=== PATIENT | female | born 1955 | race Caucasian/White ===

== ENCOUNTER → 2017-03-09 | Outpatient (CLI) | payer OTHER ==
[~2017-03-09] MED LIST: ANUSOL-HC25 MG R; CIPRO250 MG PO; CIPRO500 MG PO; CYCLOBENZAPRINE10 MG PO; DAYPRO600 M1 PO; DOXYCYCLINE MO100 MG PO; FLAGYL500 MG PO; IBUPROFEN600 MG PO; MEDROL DOSEPAK4 MG PO; NKHM; PRILOSEC20 MG PO; ROBAXIN750 MG PO; ROBITUSSIN-AC480 ML PO
[2017-03-09 09:57] LABS: BASO % 0.2 % (0.0-1.0); EOS # 0.1 10*3/uL (0.0-0.4); EOS % 1.2 % (1.0-4.0); HEMATOCRIT 45.3 % (37.0-47.0); HEMOGLOBIN 14.7 g/dl (12.0-16.0); IG # 0.1 10*3/uL (0.0-0.1); LYMPH # 2.1 10*3/uL (1.3-4.4); LYMPH % 24.5 % (27.0-41.0); MEAN CELL VOLUME 89.7 fl (81.0-99.0); MEAN CORPUSCULAR HGB 29.1 pg (27.0-31.0); MEAN CORPUSCULAR HGB CONC 32.5 g/dl (33.0-37.0); MEAN PLATELET VOLUME 9.9 fl (9.6-12.3); MONO # 0.7 10*3/uL (0.1-1.0); MONO % 8.4 % (3.0-9.0); NEUT # 5.5 10*3/uL (2.3-7.9); NEUT % 65.1 % (47.0-73.0); PLATELET COUNT AUTOMATED 259 10*3/uL (130-400); RED BLOOD COUNT 5.05 10*6/uL (4.10-5.10); RED CELL DISTRI WIDTH 13.7 % (0-14.5); WHITE BLOOD COUNT 8.5 10*3/uL (4.8-10.8)
[2017-03-09 10:11] LABS: ALBUMIN 3.9 gm/dl (3.1-4.5); ALKALINE PHOSPHATASE 115 U/L (45-117); BILIRUBIN, TOTAL 0.5 mg/dl (0.2-1.0); BUN 21 mg/dl (7-24); CARBON DIOXIDE 29 mmol/L (21-32); CHLORIDE 105 mmol/L (98-107); CHOLESTEROL 253 mg/dL (<200); EST GLOM FILT AFRICAN AMERICAN > 60 ml/min; FREE T4 1.16 ng/dl (0.76-1.46); GLUCOSE 100 mg/dL (65-99); HDL CHOLESTEROL 63 mg/dl (40-60); LDL CHOLESTEROL 171 mg/dL (9-159); POTASSIUM 4.3 mmol/L (3.5-5.1); SGOT/AST 21 IU/L (3-35); SGPT/ALT 30 U/L (12-78); SODIUM 142 mmol/L (136-145); TOTAL PROTEIN 7.8 gm/dL (6.4-8.2); TRIGLYCERIDES 97 mg/dl (<150); VLDL CHOLESTEROL 19 mg/dL (6-40)
[2017-03-09 10:51] LABS: FOLIC ACID 17.96 ng/mL (>5.38); VITAMIN D, 25-HYDROXY 27.6 ng/mL (30-100)
== END | disposition home or self-care (01) ==
LOC: LAB 09:21 → CT 11:00
PROVIDERS: Internal Medicine
DX: Z13.220 Encounter for screening for lipoid disorders (principal); Z13.1 Encounter for screening for diabetes mellitus; Z13.21 Encounter for screening for nutritional disorder; E55.9 Vitamin D deficiency, unspecified; R53.81 Other malaise; R10.9 Unspecified abdominal pain; K76.0 Fatty (change of) liver, not elsewhere classified; N28.89 Other specified disorders of kidney and ureter; K57.30 Diverticulosis of large intestine without perforation or abscess without bleeding; Q89.09 Congenital malformations of spleen

== ENCOUNTER → 2017-03-15 | Outpatient (CLI) | payer OTHER | END | disposition home or self-care (01) | LOC: US 12:58 | DX: N88.8 Other specified noninflammatory disorders of cervix uteri (principal) ==

== ENCOUNTER → 2017-03-21 | Outpatient (CLI) | payer OTHER | END | disposition home or self-care (01) | LOC: NM 07:00 | DX: R10.11 Right upper quadrant pain (principal); R12 Heartburn; R14.0 Abdominal distension (gaseous); R11.0 Nausea; J44.9 Chronic obstructive pulmonary disease, unspecified ==

== ENCOUNTER 2018-08-01 16:55 | Emergency (ER) | payer OTHER ==
[~2018-08-01] VITALS: Ht 167.6 cm; Wt 74.8 kg
[2018-08-01] MEDS ORDERED: SILVADENE,SSD C50 GM T (18:02)
[2018-08-01] MEDS ORDERED: NORCO 5-325 TA1 EACH PO (18:08)
== END 2018-08-01 19:02 | disposition home or self-care (01) ==
LOC: ED 16:55
DX: T20.26XA Burn of second degree of forehead and cheek, initial encounter (principal); R03.0 Elevated blood-pressure reading, without diagnosis of hypertension; F17.200 Nicotine dependence, unspecified, uncomplicated; Z88.0 Allergy status to penicillin; X08.8XXA Exposure to other specified smoke, fire and flames, initial encounter; Y93.G3 Activity, cooking and baking; Y92.090 Kitchen in other non-institutional residence as the place of occurrence of the external cause; Y99.8 Other external cause status

== ENCOUNTER → 2019-05-14 | Outpatient (CLI) | payer OTHER ==
[~2019-05-14] MED LIST changes: +LISINOPRIL5 MG PO; +LOMOTIL 2.5-0.1 EACH PO; +NORCO 5-325 TA1 EACH PO; +PANTOPRAZOLE SO40 MG PO; +SILVADENE,SSD C50 GM T; +SYMB160 INH
== END | disposition home or self-care (01) ==
LOC: CARD 08:22
DX: R06.02 Shortness of breath (principal)

== ENCOUNTER → 2020-04-02 | Outpatient (CLI) | payer OTHER ==
[2020-04-02 11:27] LABS: BASO % 0.3 % (0.0-1.0); EOS # 0.1 10*3/uL (0.0-0.4); EOS % 0.5 % (1.0-4.0); HEMATOCRIT 42.1 % (37.0-47.0); LYMPH # 2.1 10*3/uL (1.3-4.4); LYMPH % 19.5 % (27.0-41.0); MEAN CORPUSCULAR HGB 28.4 pg (27.0-31.0); MEAN CORPUSCULAR HGB CONC 31.6 g/dl (33.0-37.0); MEAN PLATELET VOLUME 9.2 fl (9.6-12.3); MONO # 0.8 10*3/uL (0.1-1.0); MONO % 7.3 % (3.0-9.0); NEUT # 7.7 10*3/uL (2.3-7.9); NEUT % 71.7 % (47.0-73.0); PLATELET COUNT AUTOMATED 246 10*3/uL (130-400); RED BLOOD COUNT 4.68 10*6/uL (4.10-5.10); RED CELL DISTRI WIDTH 13.7 % (0-14.5); WHITE BLOOD COUNT 10.7 10*3/uL (4.8-10.8)
[2020-04-02 11:43] LABS: ALBUMIN 3.8 gm/dl (3.1-4.5); CREATININE 1.19 mg/dL (0.55-1.02); FREE T4 1.22 ng/dl (0.76-1.46); POTASSIUM 4.3 mmol/L (3.5-5.1); TOTAL PROTEIN 8.1 gm/dL (6.4-8.2)
[2020-04-02 11:48] LABS: THYROID STIM HORMONE (HS) 2.25 uIU/ml (0.358-4.75)
[2020-04-02 12:52] LABS: VITAMIN D, 25-HYDROXY 26.4 ng/mL (30-100)
== END | disposition home or self-care (01) ==
LOC: LAB 10:51 → CT 11:00
PROVIDERS: Internal Medicine
DX: Z00.00 Encounter for general adult medical examination without abnormal findings (principal); E55.9 Vitamin D deficiency, unspecified; I10 Essential (primary) hypertension; C64.9 Malignant neoplasm of unspecified kidney, except renal pelvis; E78.2 Mixed hyperlipidemia; M25.559 Pain in unspecified hip

== ENCOUNTER 2020-04-07 12:29 | Inpatient (IN) | payer OTHER ==
[~2020-04-07] VITALS: Ht 167.6 cm; Wt 80.7 kg
[2020-04-07 12:47] VITALS: BP 180/84
[2020-04-07 13:11] LABS: ALBUMIN 3.7 gm/dl (3.1-4.5); ALKALINE PHOSPHATASE 103 U/L (45-117); BUN 14 mg/dl (7-24); CHLORIDE 108 mmol/L (98-107); POTASSIUM 4.1 mmol/L (3.5-5.1); SGOT/AST 17 IU/L (3-35); SGPT/ALT 32 U/L (12-78); SODIUM 141 mmol/L (136-145); TOTAL PROTEIN 7.8 gm/dL (6.4-8.2)
[2020-04-07 13:12] LABS: TROPONIN I < 0.015 ng/ml (<0.045)
[2020-04-07 13:24] LABS: BASO % 0.3 % (0.0-1.0); EOS # 0.1 10*3/uL (0.0-0.4); HEMATOCRIT 38.7 % (37.0-47.0); LYMPH # 1.7 10*3/uL (1.3-4.4); LYMPH % 22.7 % (27.0-41.0); MEAN CELL VOLUME 90.4 fl (81.0-99.0); MEAN CORPUSCULAR HGB 28.5 pg (27.0-31.0); MEAN CORPUSCULAR HGB CONC 31.5 g/dl (33.0-37.0); MEAN PLATELET VOLUME 9.5 fl (9.6-12.3); MONO # 0.5 10*3/uL (0.1-1.0); MONO % 6.9 % (3.0-9.0); NEUT # 5.1 10*3/uL (2.3-7.9); NEUT % 68.7 % (47.0-73.0); PLATELET COUNT AUTOMATED 218 10*3/uL (130-400); RED BLOOD COUNT 4.28 10*6/uL (4.10-5.10); RED CELL DISTRI WIDTH 13.8 % (0-14.5); WHITE BLOOD COUNT 7.4 10*3/uL (4.8-10.8)
[2020-04-07 13:34] LABS: ACT PARTIAL THROMBO TIME 26.4 SECONDS (20.0-32.1)
[2020-04-07 14:06] VITALS: BP 164/70
[2020-04-07 15:00] VITALS: BP 180/78
[2020-04-07] MEDS ORDERED: LISINOPRIL10 M1 PO (15:10)
[2020-04-07 20:00] VITALS: BP 144/64
[2020-04-08] VITALS: BP 156/67
[2020-04-08 03:43] LABS: BASO % 0.2 % (0.0-1.0); EOS % 0.1 % (1.0-4.0); HEMATOCRIT 41.9 % (37.0-47.0); LYMPH # 0.8 10*3/uL (1.3-4.4); LYMPH % 8.2 % (27.0-41.0); MEAN CELL VOLUME 90.9 fl (81.0-99.0); MEAN CORPUSCULAR HGB 28.4 pg (27.0-31.0); MEAN CORPUSCULAR HGB CONC 31.3 g/dl (33.0-37.0); MONO # 0.1 10*3/uL (0.1-1.0); MONO % 1.2 % (3.0-9.0); NEUT # 9.2 10*3/uL (2.3-7.9); NEUT % 89.9 % (47.0-73.0); PLATELET COUNT AUTOMATED 247 10*3/uL (130-400); RED BLOOD COUNT 4.61 10*6/uL (4.10-5.10); RED CELL DISTRI WIDTH 13.7 % (0-14.5); WHITE BLOOD COUNT 10.2 10*3/uL (4.8-10.8)
[2020-04-08 03:56] LABS: BUN 16 mg/dl (7-24); CHLORIDE 109 mmol/L (98-107); CREATININE 1.06 mg/dL (0.55-1.02); POTASSIUM 4.2 mmol/L (3.5-5.1); SODIUM 141 mmol/L (136-145)
[2020-04-08 03:59] LABS: CHOLESTEROL 242 mg/dL (<200); HDL CHOLESTEROL 54 mg/dl (40-60); LDL CHOLESTEROL 174 mg/dL (9-159); TRIGLYCERIDES 70 mg/dl (<150); VLDL CHOLESTEROL 14 mg/dL (6-40)
[2020-04-08 08:00] VITALS: BP 168/88
[2020-04-08 12:00] VITALS: BP 179/69
[2020-04-08 16:00] VITALS: BP 148/50
[2020-04-08 20:00] VITALS: BP 158/70
[2020-04-09] VITALS: BP 163/68
[2020-04-09] MEDS ORDERED: METOPROLOL SUC100 M1 PO (06:30)
[2020-04-09] MEDS ORDERED: ATORVASTATIN CA20 M1 PO (06:30)
[2020-04-09] MEDS ORDERED: PREDNISONE5 MG PO (06:30)
[2020-04-09] MEDS ORDERED: DOXYCYCLINE100 M3 PO (06:30)
[2020-04-09 08:00] VITALS: BP 158/64
== END 2020-04-09 10:49 | disposition home or self-care (01) | DRG 140 ==
LOC: ED 12:29 → EDHOLD 14:04 → 5E 14:48
PROVIDERS: Emergency Medicine; ADMIT Internal Medicine
PROC: 4A02XM4 Measurement of Cardiac Total Activity, External Approach (ICD-10-PCS; principal; 2020-04-09)
PROC: 3E073KZ Introduction of Other Diagnostic Substance into Coronary Artery, Percutaneous Approach (ICD-10-PCS; 2020-04-09)
DX: J44.0 Chronic obstructive pulmonary disease with (acute) lower respiratory infection (principal); J44.1 Chronic obstructive pulmonary disease with (acute) exacerbation; R07.89 Other chest pain; J20.9 Acute bronchitis, unspecified; N18.3 Chronic kidney disease, stage 3 (moderate); J96.10 Chronic respiratory failure, unspecified whether with hypoxia or hypercapnia; I12.9 Hypertensive chronic kidney disease with stage 1 through stage 4 chronic kidney disease, or unspecified chronic kidney disease; F17.210 Nicotine dependence, cigarettes, uncomplicated; E78.2 Mixed hyperlipidemia; Z90.5 Acquired absence of kidney; Z71.6 Tobacco abuse counseling; Z88.0 Allergy status to penicillin

== ENCOUNTER → 2021-02-09 | Outpatient (CLI) | payer OTHER ==
[~2021-02-09] MED LIST changes: +ATORVASTATIN CA20 M1 PO; +DOXYCYCLINE100 M3 PO; +LISINOPRIL10 M1 PO; +METOPROLOL SUC100 M1 PO; +PREDNISONE5 MG PO
== END | disposition home or self-care (01) ==
LOC: RAD 14:15
PROVIDERS: ATTEND Internal Medicine
DX: M46.02 Spinal enthesopathy, cervical region (principal); R10.9 Unspecified abdominal pain

== ENCOUNTER → 2021-07-28 | Outpatient (CLI) | payer OTHER ==
[2021-07-28 11:22] LABS: BASO % 0.2 % (0.0-1.0); EOS # 0.1 10*3/uL (0.0-0.4); EOS % 0.4 % (1.0-4.0); HEMATOCRIT 42.5 % (37.0-47.0); LYMPH # 1.9 10*3/uL (1.3-4.4); LYMPH % 15.8 % (27.0-41.0); MEAN CELL VOLUME 90.2 fl (81.0-99.0); MEAN CORPUSCULAR HGB 28.5 pg (27.0-31.0); MEAN CORPUSCULAR HGB CONC 31.5 g/dl (33.0-37.0); MEAN PLATELET VOLUME 9.5 fl (9.6-12.3); MONO % 8.1 % (3.0-9.0); NEUT # 8.9 10*3/uL (2.3-7.9); PLATELET COUNT AUTOMATED 275 10*3/uL (130-400); RED BLOOD COUNT 4.71 10*6/uL (4.10-5.10); RED CELL DISTRI WIDTH 13.6 % (0-14.5); WHITE BLOOD COUNT 11.9 10*3/uL (4.8-10.8)
[2021-07-28 11:44] LABS: ALBUMIN 3.4 gm/dl (3.1-4.5); ALKALINE PHOSPHATASE 100 U/L (45-117); BUN 21 mg/dl (7-24); CHLORIDE 107 mmol/L (98-107); CHOLESTEROL 248 mg/dL (<200); CREATININE 0.99 mg/dL (0.55-1.02); LDL CHOLESTEROL 167 mg/dL (9-159); POTASSIUM 4.4 mmol/L (3.5-5.1); SGOT/AST 15 IU/L (3-35); SGPT/ALT 30 U/L (12-78); SODIUM 140 mmol/L (136-145); TOTAL PROTEIN 7.7 gm/dL (6.4-8.2); TRIGLYCERIDES 135 mg/dl (<150)
[2021-07-28 11:56] LABS: VITAMIN D, 25-HYDROXY 38.8 ng/mL (30-100)
== END | disposition home or self-care (01) ==
LOC: LAB 11:01
PROVIDERS: ATTEND Internal Medicine
DX: Z13.1 Encounter for screening for diabetes mellitus (principal); E78.2 Mixed hyperlipidemia; E55.9 Vitamin D deficiency, unspecified; Z00.00 Encounter for general adult medical examination without abnormal findings; I10 Essential (primary) hypertension

== ENCOUNTER → 2022-03-01 | Outpatient (CLI) | payer OTHER | END | disposition home or self-care (01) | LOC: LAB 08:15 → CT 09:00 | PROVIDERS: Radiology Diagnostic Radiology; ATTEND Internal Medicine | DX: J43.9 Emphysema, unspecified (principal); R91.8 Other nonspecific abnormal finding of lung field; I25.10 Atherosclerotic heart disease of native coronary artery without angina pectoris; N28.1 Cyst of kidney, acquired ==

== ENCOUNTER → 2023-01-16 | Outpatient (CLI) | payer OTHER ==
[~2023-01-16] MED LIST changes: +BREO ELLIPTA 21 EACH INH; +HYDRALAZINE HYD50 MG PO
== END | disposition home or self-care (01) ==
LOC: MRI 01:10
PROVIDERS: ATTEND Internal Medicine
DX: M47.817 Spondylosis without myelopathy or radiculopathy, lumbosacral region (principal); M48.07 Spinal stenosis, lumbosacral region; M51.36 Other intervertebral disc degeneration, lumbar region

== ENCOUNTER → 2023-01-16 | Outpatient (CLI) | payer OTHER ==
[2023-01-16 11:48] LABS: BASO % 0.1 % (0.0-1.0); EOS # 0.1 10*3/uL (0.0-0.4); EOS % 0.5 % (1.0-4.0); LYMPH # 1.7 10*3/uL (1.3-4.4); LYMPH % 18.2 % (27.0-41.0); MEAN CELL VOLUME 91.3 fl (81.0-99.0); MEAN CORPUSCULAR HGB 28.2 pg (27.0-31.0); MEAN CORPUSCULAR HGB CONC 30.9 g/dl (33.0-37.0); MONO # 0.6 10*3/uL (0.1-1.0); MONO % 6.3 % (3.0-9.0); NEUT % 74.6 % (47.0-73.0); PLATELET COUNT AUTOMATED 220 10*3/uL (130-400); RED BLOOD COUNT 4.82 10*6/uL (4.10-5.10); RED CELL DISTRI WIDTH 14.2 % (0-14.5); WHITE BLOOD COUNT 9.5 10*3/uL (4.8-10.8)
[2023-01-16 12:17] LABS: ALKALINE PHOSPHATASE 98 U/L (46-116); BUN 12 mg/dl (9-23); CHLORIDE 109 mmol/L (98-107); CHOLESTEROL 189 mg/dL (<200); FREE T4 1.12 ng/dl (0.89-1.76); LDL CHOLESTEROL 100 mg/dL (9-159); POTASSIUM 4.1 mmol/L (3.4-5.1); SGPT/ALT 14 U/L (10-49); THYROID STIM HORMONE (HS) 1.981 uIU/ml (0.550-4.780); TOTAL PROTEIN 7.1 gm/dL (6.0-8.0); TRIGLYCERIDES 192 mg/dl (<150); VITAMIN D, 25-HYDROXY 49.7 ng/mL (30-100)
== END | disposition home or self-care (01) ==
LOC: LAB 11:29
PROVIDERS: ATTEND Internal Medicine
DX: I10 Essential (primary) hypertension (principal); M47.816 Spondylosis without myelopathy or radiculopathy, lumbar region; E55.9 Vitamin D deficiency, unspecified

== ENCOUNTER → 2023-01-19 | Outpatient (CLI) | payer OTHER | END | disposition home or self-care (01) | LOC: RAD 00:50 | PROVIDERS: ATTEND Internal Medicine | DX: Z13.820 Encounter for screening for osteoporosis (principal); Z78.0 Asymptomatic menopausal state ==

== ENCOUNTER → 2023-05-15 | Outpatient (CLI) | payer OTHER | END | disposition home or self-care (01) | LOC: LAB 02:52 → CT 11:00 | PROVIDERS: ATTEND Internal Medicine | DX: I74.5 Embolism and thrombosis of iliac artery (principal); R93.6 Abnormal findings on diagnostic imaging of limbs ==

== ENCOUNTER 2023-10-09 18:31 | Emergency (ER) | payer OTHER ==
[2023-10-09 19:23] LABS: EOS % 0.4 % (1.0-4.0); LYMPH # 1.4 10*3/uL (1.3-4.4); MEAN CELL VOLUME 91.7 fl (81.0-99.0); MEAN CORPUSCULAR HGB 28.1 pg (27.0-31.0); MEAN CORPUSCULAR HGB CONC 30.7 g/dl (33.0-37.0); MEAN PLATELET VOLUME 9.8 fl (9.6-12.3); MONO # 0.7 10*3/uL (0.1-1.0); MONO % 6.3 % (3.0-9.0); NEUT # 8.6 10*3/uL (2.3-7.9); PLATELET COUNT AUTOMATED 239 10*3/uL (130-400); RED CELL DISTRI WIDTH 13.6 % (0-14.5); WHITE BLOOD COUNT 10.8 10*3/uL (4.8-10.8)
[2023-10-09 19:35] LABS: ACT PARTIAL THROMBO TIME 27.9 SECONDS (20.0-32.1)
[2023-10-09 19:47] LABS: BILIRUBIN Negative (Negative); BLOOD Negative (Negative); CLARITY Clear (Clear); COLOR Yellow (Yellow); GLUCOSE Negative (Negative); KETONE Trace (Negative); LEUKO ESTERASE Negative (Negative); NITRITE Negative (Negative); SPECIFIC GRAVITY 1.015 (1.001-1.030); UROBILINOGEN 0.2 E.U./dl (0.0-1.0)
[2023-10-09 20:03] LABS: BACTERIA TRACE; HYALINE CAST 0-2; RBC 0-2 rbc/hpf (0-2)
[2023-10-09 20:11] LABS: POTASSIUM 4.1 mmol/L (3.4-5.1)
== END 2023-10-09 23:14 | disposition home or self-care (01) ==
LOC: ED 18:31
PROVIDERS: Physician Assistant Medical
DX: J40 Bronchitis, not specified as acute or chronic (principal); R07.81 Pleurodynia; I10 Essential (primary) hypertension; J44.9 Chronic obstructive pulmonary disease, unspecified; E11.9 Type 2 diabetes mellitus without complications; Z88.0 Allergy status to penicillin; Z98.890 Other specified postprocedural states; Z98.51 Tubal ligation status; K21.9 Gastro-esophageal reflux disease without esophagitis

== ENCOUNTER 2023-10-18 12:54 | Inpatient (IN) | payer OTHER, MEDICAID ==
[~2023-10-18] VITALS: Ht 167.6 cm; Wt 72.6 kg
[2023-10-18] VITALS (8 sets, daily range): BP systolic 140–211; BP diastolic 65–96
[2023-10-18 13:33] LABS: BASO % 0.1 % (0.0-1.0); EOS % 0.1 % (1.0-4.0); HEMATOCRIT 41.8 % (37.0-47.0); LYMPH # 1.5 10*3/uL (1.3-4.4); LYMPH % 17.7 % (27.0-41.0); MEAN CELL VOLUME 90.1 fl (81.0-99.0); MEAN CORPUSCULAR HGB 28.4 pg (27.0-31.0); MEAN CORPUSCULAR HGB CONC 31.6 g/dl (33.0-37.0); MEAN PLATELET VOLUME 10.1 fl (9.6-12.3); MONO # 0.7 10*3/uL (0.1-1.0); MONO % 7.5 % (3.0-9.0); NEUT # 6.4 10*3/uL (2.3-7.9); NEUT % 73.9 % (47.0-73.0); PLATELET COUNT AUTOMATED 288 10*3/uL (130-400); RED BLOOD COUNT 4.64 10*6/uL (4.10-5.10); RED CELL DISTRI WIDTH 13.7 % (0-14.5); WHITE BLOOD COUNT 8.6 10*3/uL (4.8-10.8)
[2023-10-18 13:44] LABS: ACT PARTIAL THROMBO TIME 28.5 SECONDS (20.0-32.1)
[2023-10-18 13:49] LABS: ALKALINE PHOSPHATASE 98 U/L (46-116); BUN 16 mg/dl (9-23); CHLORIDE 104 mmol/L (98-107); LIPASE 34 U/L (12-53); POTASSIUM 4.3 mmol/L (3.4-5.1); SGPT/ALT 22 U/L (5-49); TOTAL PROTEIN 7.5 gm/dL (6.0-8.0)
[2023-10-18] MEDS ORDERED: methylPREDNISolone sod succ 125 MG VIAL IV ONE (15:45)
[2023-10-18] MEDS ORDERED: HEPARIN SODIUM 25,000 UNITS/250 ML BAG IV SCH (15:45)
[2023-10-18] MEDS ORDERED: ASPIRIN, CHEWABLE 81 MG TAB PO ONE (15:45)
[2023-10-18] MEDS ORDERED: AZITHROMYCIN 250 ML IV ONE (15:45)
[2023-10-18] MEDS ORDERED: Ceftriaxone Sodium 1 GM/10 ML SYR IV ONE (15:45)
[2023-10-18] MEDS ORDERED: Albuterol Sulf/Ipratropium 3 ML VIAL NEB ONE (15:45)
[2023-10-18] MEDS ORDERED: Albuterol Sulf/Ipratropium 3 ML VIAL NEB PRN (22:05)
[2023-10-18] MEDS ORDERED: SINGULAIR10 M1 PO (22:05)
[2023-10-19] VITALS (8 sets, daily range): BP systolic 133–190; BP diastolic 61–86
[2023-10-19] MEDS ORDERED: NITROGLYCERIN 1 IN PACKET T SCH
[2023-10-19] MEDS ORDERED: cloNIDine Hydrochloride 0.1 MG TAB PO ONE (01:55)
[2023-10-19 04:54] LABS: BUN 17 mg/dl (9-23); CHLORIDE 107 mmol/L (98-107); CHOLESTEROL 182 mg/dL (<200); LDL CHOLESTEROL 123 mg/dL (9-159); POTASSIUM 5.2 mmol/L (3.4-5.1); TRIGLYCERIDES 101 mg/dl (<150)
[2023-10-19 05:56] LABS: BILIRUBIN Negative (Negative); BLOOD Negative (Negative); CLARITY Clear (Clear); COLOR Yellow (Yellow); GLUCOSE Negative (Negative); KETONE Negative (Negative); LEUKO ESTERASE Negative (Negative); NITRITE Negative (Negative); PH 5.5 (4.5-8.0); SPECIFIC GRAVITY 1.025 (1.001-1.030); UROBILINOGEN 0.2 E.U./dl (0.0-1.0)
[2023-10-19] MEDS ORDERED: hydrALAZINE hydrochloride 50 MG TAB PO SCH (06:00)
[2023-10-19 06:29] LABS: BACTERIA 1+; WBC 0-2 wbc/hpf (0-5); YEAST 1+
[2023-10-19 06:42] LABS: BASO % 0.2 % (0.0-1.0); LYMPH # 0.6 10*3/uL (1.3-4.4); LYMPH % 9.4 % (27.0-41.0); MEAN CORPUSCULAR HGB 27.4 pg (27.0-31.0); MEAN CORPUSCULAR HGB CONC 29.3 g/dl (33.0-37.0); MONO # 0.3 10*3/uL (0.1-1.0); MONO % 3.9 % (3.0-9.0); NEUT # 5.4 10*3/uL (2.3-7.9); NEUT % 84.3 % (47.0-73.0); PLATELET COUNT AUTOMATED 296 10*3/uL (130-400); RED BLOOD COUNT 4.38 10*6/uL (4.10-5.10); RED CELL DISTRI WIDTH 13.4 % (0-14.5); WHITE BLOOD COUNT 6.4 10*3/uL (4.8-10.8)
[2023-10-19 06:46] LABS: MEAN CELL VOLUME 93.6 fl (81.0-99.0)
[2023-10-19] MEDS ORDERED: Pantoprazole Sodium 40 MG TAB PO SCH (07:30)
[2023-10-19] MEDS ORDERED: BUDESONIDE 0.5 MG AMP NEB SCH (07:45)
[2023-10-19] MEDS ORDERED: ASPIRIN ENTERIC COATED 81 MG TAB PO SCH (10:00)
[2023-10-19] MEDS ORDERED: METOPROLOL SUCCINATE XR 100 MG TAB PO SCH (10:00)
[2023-10-19] MEDS ORDERED: Montelukast Sodium 10 MG TAB PO SCH (10:00)
[2023-10-19] MEDS ORDERED: LISINOPRIL 10 MG TAB PO SCH (10:00)
[2023-10-19] MEDS ORDERED: methylPREDNISolone sod succ 40 MG VIAL IV SCH (14:00)
[2023-10-19] MEDS ORDERED: Albuterol Sulf/Ipratropium 3 ML VIAL NEB SCH ×2 (14:47→22:05)
[2023-10-19] MEDS ORDERED: AZITHROMYCIN 250 ML IV SCH (16:00)
[2023-10-19] MEDS ORDERED: ATORVASTATIN CALCIUM 20 MG TAB PO SCH (18:00)
[2023-10-19] MEDS ORDERED: LORazepam 0.5 MG TAB PO PRN (21:25)
[2023-10-19] MEDS ORDERED: Doxycycline Hyclate 100 MG CAP PO SCH (22:00)
[2023-10-20] VITALS (7 sets, daily range): BP systolic 133–186; BP diastolic 59–77
[2023-10-20] MEDS ORDERED: Enoxaparin Sodium 40 MG/0.4 ML SYR SC SCH (10:00)
[2023-10-20] MEDS ORDERED: methylPREDNISolone sod succ 40 MG VIAL IV SCH (22:00)
[2023-10-21] VITALS (7 sets, daily range): BP systolic 156–194; BP diastolic 49–106
[2023-10-21 06:31] LABS: HEMATOCRIT 41.8 % (37.0-47.0); MEAN CELL VOLUME 93.3 fl (81.0-99.0); MEAN CORPUSCULAR HGB 28.3 pg (27.0-31.0); MEAN CORPUSCULAR HGB CONC 30.4 g/dl (33.0-37.0); MEAN PLATELET VOLUME 9.7 fl (9.6-12.3); PLATELET COUNT AUTOMATED 389 10*3/uL (130-400); RED BLOOD COUNT 4.48 10*6/uL (4.10-5.10); RED CELL DISTRI WIDTH 13.9 % (0-14.5); WHITE BLOOD COUNT 18.3 10*3/uL (4.8-10.8)
[2023-10-21 06:33] LABS: MANUAL DIFF REFLEX YES
[2023-10-21 06:50] LABS: BUN 22 mg/dl (9-23); CHLORIDE 108 mmol/L (98-107); POTASSIUM 4.4 mmol/L (3.4-5.1)
[2023-10-21 06:58] LABS: BURR CELLS FEW; OVALOCYTES FEW; PLATELET SUFFICIENCY NORMAL (NORMAL); POLYCHROMASIA SLIGHT; TOTAL CELLS COUNTED 100 #CELLS
[2023-10-22] VITALS (7 sets, daily range): BP systolic 128–196; BP diastolic 55–99
[2023-10-22 05:57] LABS: HEMATOCRIT 41.3 % (37.0-47.0); MEAN CELL VOLUME 93.7 fl (81.0-99.0); MEAN CORPUSCULAR HGB 28.1 pg (27.0-31.0); MEAN PLATELET VOLUME 9.6 fl (9.6-12.3); PLATELET COUNT AUTOMATED 348 10*3/uL (130-400); RED BLOOD COUNT 4.41 10*6/uL (4.10-5.10); RED CELL DISTRI WIDTH 13.9 % (0-14.5); WHITE BLOOD COUNT 13.4 10*3/uL (4.8-10.8)
[2023-10-22 06:03] LABS: MANUAL DIFF REFLEX YES
[2023-10-22 06:32] LABS: BUN 25 mg/dl (9-23); CHLORIDE 106 mmol/L (98-107); POTASSIUM 4.9 mmol/L (3.4-5.1)
[2023-10-22 07:32] LABS: PLATELET SUFFICIENCY NORMAL (NORMAL); TOTAL CELLS COUNTED 100 #CELLS
[2023-10-22] MEDS ORDERED: LISINOPRIL 10 MG TAB PO SCH (10:00)
[2023-10-22] MEDS ORDERED: busPIRone Hydrochloride 5 MG TAB PO SCH (10:00)
[2023-10-22] MEDS ORDERED: hydrALAZINE hydrochloride 50 MG TAB PO SCH ×2 (10:00→12:00)
[2023-10-22] MEDS ORDERED: methylPREDNISolone sod succ 40 MG VIAL IV SCH (22:00)
[2023-10-23] VITALS: BP 153/57
[2023-10-23 06:43] LABS: BUN 23 mg/dl (9-23); CHLORIDE 104 mmol/L (98-107); POTASSIUM 5.3 mmol/L (3.4-5.1)
[2023-10-23 06:50] LABS: MEAN CELL VOLUME 93.7 fl (81.0-99.0); MEAN CORPUSCULAR HGB 28.5 pg (27.0-31.0); MEAN CORPUSCULAR HGB CONC 30.5 g/dl (33.0-37.0); NUCLEATED RED BLOOD CELL 0.2 % (0.0-0.0); PLATELET COUNT AUTOMATED 342 10*3/uL (130-400); RED BLOOD COUNT 4.59 10*6/uL (4.10-5.10); RED CELL DISTRI WIDTH 13.7 % (0-14.5); WHITE BLOOD COUNT 12.9 10*3/uL (4.8-10.8)
[2023-10-23 06:52] LABS: MANUAL DIFF REFLEX YES
[2023-10-23 07:57] LABS: OVALOCYTES FEW; PLATELET SUFFICIENCY NORMAL (NORMAL); POLYCHROMASIA SLIGHT; TOTAL CELLS COUNTED 100 #CELLS
[2023-10-23 08:00] VITALS: BP 165/67
[2023-10-23] MEDS ORDERED: Oseltamivir Phosphate 75 MG CAP PO SCH (10:00)
[2023-10-23] MEDS ORDERED: ISOSORBIDE MONONITRATE 30 MG TAB PO SCH (10:00)
[2023-10-23] MEDS ORDERED: FLUCONAZOLE 100 MG TAB PO SCH (10:00)
[2023-10-23 12:00] VITALS: BP 150/60
[2023-10-23 16:00] VITALS: BP 157/59
[2023-10-23 20:00] VITALS: BP 160/69
[2023-10-24] VITALS: BP 173/62
[2023-10-24 08:00] VITALS: BP 168/62
[2023-10-24] MEDS ORDERED: DOXYCYCLINE MO100 MG PO (08:06)
[2023-10-24] MEDS ORDERED: ASPIRIN ADULT L81 M2 PO (08:07)
[2023-10-24] MEDS ORDERED: LISINOPRIL10 M1 PO (08:07)
[2023-10-24] MEDS ORDERED: FLUCONAZOLE100 MG PO (08:07)
[2023-10-24] MEDS ORDERED: IMDUR SA30 MG PO (08:07)
[2023-10-24] MEDS ORDERED: HYDRALAZINE HYD50 MG PO (08:07)
[2023-10-24] MEDS ORDERED: BUSPAR5 MG PO (08:07)
[2023-10-24] MEDS ORDERED: LISINOPRIL20 MG PO (08:08)
== END 2023-10-24 10:02 | disposition home or self-care (01) | DRG 189 ==
LOC: ED 12:54 → ICCU 15:53 → EDHOLD 15:53 → ICCU 20:32
PROVIDERS: Internal Medicine; ADMIT Internal Medicine; ATTEND Internal Medicine
PROC: 5A09357 Assistance with Respiratory Ventilation, Less than 24 Consecutive Hours, Continuous Positive Airway Pressure (ICD-10-PCS; principal; 2023-10-18)
PROC: 5A09357 Assistance with Respiratory Ventilation, Less than 24 Consecutive Hours, Continuous Positive Airway Pressure (ICD-10-PCS; 2023-10-19)
PROC: 5A09357 Assistance with Respiratory Ventilation, Less than 24 Consecutive Hours, Continuous Positive Airway Pressure (ICD-10-PCS; 2023-10-20)
PROC: 5A09357 Assistance with Respiratory Ventilation, Less than 24 Consecutive Hours, Continuous Positive Airway Pressure (ICD-10-PCS; 2023-10-21)
PROC: 5A09357 Assistance with Respiratory Ventilation, Less than 24 Consecutive Hours, Continuous Positive Airway Pressure (ICD-10-PCS; 2023-10-22)
DX: J80 Acute respiratory distress syndrome (principal); I21.A1 Myocardial infarction type 2; J44.1 Chronic obstructive pulmonary disease with (acute) exacerbation; J44.0 Chronic obstructive pulmonary disease with (acute) lower respiratory infection; Z20.822 Contact with and (suspected) exposure to COVID-19; R62.7 Adult failure to thrive; E87.5 Hyperkalemia; E78.2 Mixed hyperlipidemia; F41.1 Generalized anxiety disorder; J10.1 Influenza due to other identified influenza virus with other respiratory manifestations; I10 Essential (primary) hypertension; F17.210 Nicotine dependence, cigarettes, uncomplicated; Z88.0 Allergy status to penicillin; Z79.899 Other long term (current) drug therapy; Z98.51 Tubal ligation status; Z90.5 Acquired absence of kidney; Z68.25 Body mass index [BMI] 25.0-25.9, adult

== ENCOUNTER 2023-11-17 13:23 | Emergency (ER) | payer OTHER, MEDICAID ==
[~2023-11-17] VITALS: Ht 167.6 cm; Wt 73.0 kg
[~2023-11-17 13:23] MED LIST changes: +ASPIRIN ADULT L81 M2 PO; +ATORVASTATIN CA40 M1 PO; +BUSPAR5 MG PO; +FLUCONAZOLE100 MG PO; +IMDUR SA30 MG PO; +Ipratropium Brom3 ML NEB; +LISINOPRIL20 MG PO; +SINGULAIR10 M1 PO
[2023-11-17] MEDS ORDERED: LEVOFLOXACIN750 M2 PO (13:45)
[2023-11-17] MEDS ORDERED: LEVOFLOXACIN 750 MG TAB PO ONE (13:45)
[2023-11-17] MEDS ORDERED: CETRAXAL1 EACH OT (13:45)
== END 2023-11-17 14:03 | disposition home or self-care (01) ==
LOC: ED 13:23
DX: H66.91 Otitis media, unspecified, right ear (principal); H60.91 Unspecified otitis externa, right ear; J44.9 Chronic obstructive pulmonary disease, unspecified; K21.9 Gastro-esophageal reflux disease without esophagitis; I10 Essential (primary) hypertension; Z88.0 Allergy status to penicillin; Z98.890 Other specified postprocedural states; Z98.51 Tubal ligation status; Z87.891 Personal history of nicotine dependence

== ENCOUNTER → 2023-12-20 | Outpatient (CLI) | payer OTHER, MEDICAID ==
[~2023-12-20] MED LIST changes: +CETRAXAL1 EACH OT; +FUROSEMIDE20 M1 PO; +LEVOFLOXACIN750 M2 PO; +METOPROLOL SUCC25 M2 PO; +PLAVIX75 M1 PO; +PULMICORT RES0.25 M1 INH; +TRAZODONE100 MG PO
[2023-12-20 11:41] LABS: BASO % 0.2 % (0.0-1.0); EOS # 0.1 10*3/uL (0.0-0.4); EOS % 0.6 % (1.0-4.0); HEMATOCRIT 35.8 % (37.0-47.0); LYMPH # 1.3 10*3/uL (1.3-4.4); MEAN CORPUSCULAR HGB 27.8 pg (27.0-31.0); MEAN CORPUSCULAR HGB CONC 29.9 g/dl (33.0-37.0); MEAN PLATELET VOLUME 9.5 fl (9.6-12.3); MONO # 0.7 10*3/uL (0.1-1.0); MONO % 7.5 % (3.0-9.0); NEUT # 7.4 10*3/uL (2.3-7.9); NEUT % 76.9 % (47.0-73.0); PLATELET COUNT AUTOMATED 295 10*3/uL (130-400); RED BLOOD COUNT 3.85 10*6/uL (4.10-5.10); RED CELL DISTRI WIDTH 14.6 % (0-14.5); WHITE BLOOD COUNT 9.6 10*3/uL (4.8-10.8)
[2023-12-20 12:17] LABS: ALKALINE PHOSPHATASE 97 U/L (46-116); BUN 20 mg/dl (9-23); CHLORIDE 105 mmol/L (98-107); CHOLESTEROL 213 mg/dL (<200); FREE T4 1.26 ng/dl (0.89-1.76); LDL CHOLESTEROL 119 mg/dL (9-159); SGPT/ALT 15 U/L (5-49); TOTAL PROTEIN 7.3 gm/dL (6.0-8.0); TRIGLYCERIDES 98 mg/dl (<150); VITAMIN D, 25-HYDROXY 56.8 ng/mL (30-100)
== END | disposition home or self-care (01) ==
LOC: LAB 00:18 → MAMMO 11:30 → LAB 11:30
PROVIDERS: ATTEND Internal Medicine
DX: Z12.31 Encounter for screening mammogram for malignant neoplasm of breast (principal); E78.9 Disorder of lipoprotein metabolism, unspecified; Z13.1 Encounter for screening for diabetes mellitus; Z13.0 Encounter for screening for diseases of the blood and blood-forming organs and certain disorders involving the immune mechanism; Z13.21 Encounter for screening for nutritional disorder; Z13.220 Encounter for screening for lipoid disorders; Z13.228 Encounter for screening for other metabolic disorders; Z13.29 Encounter for screening for other suspected endocrine disorder; Z13.6 Encounter for screening for cardiovascular disorders; Z13.89 Encounter for screening for other disorder; Z13.9 Encounter for screening, unspecified; J44.9 Chronic obstructive pulmonary disease, unspecified; I10 Essential (primary) hypertension

== ENCOUNTER 2024-02-27 16:29 | Emergency (ER) | payer OTHER, MEDICAID ==
[~2024-02-27] VITALS: Ht 160 cm; Wt 74.8 kg
[2024-02-27] MEDS ORDERED: Ketorolac Tromethamine 30 MG/ML VIAL IV ONE (17:10)
[2024-02-27 17:30] LABS: BASO % 0.1 % (0.0-1.0); EOS # 0.2 10*3/uL (0.0-0.4); EOS % 1.9 % (1.0-4.0); HEMATOCRIT 33.6 % (37.0-47.0); LYMPH # 1.2 10*3/uL (1.3-4.4); LYMPH % 14.9 % (27.0-41.0); MEAN CELL VOLUME 88.9 fl (81.0-99.0); MEAN CORPUSCULAR HGB 27.8 pg (27.0-31.0); MEAN CORPUSCULAR HGB CONC 31.3 g/dl (33.0-37.0); MEAN PLATELET VOLUME 9.1 fl (9.6-12.3); MONO # 0.7 10*3/uL (0.1-1.0); MONO % 9.6 % (3.0-9.0); NEUT # 5.6 10*3/uL (2.3-7.9); NEUT % 73.1 % (47.0-73.0); PLATELET COUNT AUTOMATED 195 10*3/uL (130-400); RED BLOOD COUNT 3.78 10*6/uL (4.10-5.10); RED CELL DISTRI WIDTH 13.9 % (0-14.5); WHITE BLOOD COUNT 7.7 10*3/uL (4.8-10.8)
[2024-02-27 17:49] LABS: ALKALINE PHOSPHATASE 91 U/L (46-116); BUN 14 mg/dl (9-23); CHLORIDE 107 mmol/L (98-107); POTASSIUM 4.4 mmol/L (3.4-5.1); SGPT/ALT 13 U/L (5-49); TOTAL PROTEIN 6.5 gm/dL (6.0-8.0)
== END 2024-02-27 19:15 | disposition home or self-care (01) ==
LOC: ED 16:29
PROVIDERS: Emergency Medicine
DX: M94.0 Chondrocostal junction syndrome [Tietze] (principal); R07.89 Other chest pain; I10 Essential (primary) hypertension; E78.5 Hyperlipidemia, unspecified; F17.200 Nicotine dependence, unspecified, uncomplicated; Z88.0 Allergy status to penicillin; Z98.51 Tubal ligation status; Z79.899 Other long term (current) drug therapy; Z79.82 Long term (current) use of aspirin; Z95.5 Presence of coronary angioplasty implant and graft

== ENCOUNTER 2024-05-16 16:43 | Emergency (ER) | payer OTHER, MEDICAID ==
[~2024-05-16] VITALS: Ht 167.6 cm; Wt 74.8 kg
[2024-05-16 17:16] LABS: BASO % 0.1 % (0.0-1.0); EOS # 0.1 10*3/uL (0.0-0.4); EOS % 0.6 % (1.0-4.0); HEMATOCRIT 28.7 % (37.0-47.0); LYMPH # 0.8 10*3/uL (1.3-4.4); LYMPH % 8.4 % (27.0-41.0); MEAN CELL VOLUME 91.1 fl (81.0-99.0); MEAN CORPUSCULAR HGB 26.3 pg (27.0-31.0); MEAN CORPUSCULAR HGB CONC 28.9 g/dl (33.0-37.0); MONO # 0.6 10*3/uL (0.1-1.0); MONO % 6.4 % (3.0-9.0); NEUT # 8.2 10*3/uL (2.3-7.9); NEUT % 83.7 % (47.0-73.0); PLATELET COUNT AUTOMATED 211 10*3/uL (130-400); RED BLOOD COUNT 3.15 10*6/uL (4.10-5.10); RED CELL DISTRI WIDTH 14.2 % (0-14.5); WHITE BLOOD COUNT 9.9 10*3/uL (4.8-10.8)
[2024-05-16 17:37] LABS: ACT PARTIAL THROMBO TIME 23.9 SECONDS (20.0-32.1)
== END 2024-05-16 20:08 | disposition home or self-care (01) ==
LOC: ED 16:43
PROVIDERS: Physician Assistant Medical
DX: R04.0 Epistaxis (principal); J44.9 Chronic obstructive pulmonary disease, unspecified; K21.9 Gastro-esophageal reflux disease without esophagitis; I10 Essential (primary) hypertension; F17.200 Nicotine dependence, unspecified, uncomplicated; Z88.0 Allergy status to penicillin; Z98.51 Tubal ligation status; Z98.890 Other specified postprocedural states

== ENCOUNTER 2024-07-09 17:06 | Emergency (ER) | payer OTHER, MEDICAID ==
[~2024-07-09] VITALS: Ht 167.6 cm; Wt 77.1 kg
[2024-07-09] MEDS ORDERED: methylPREDNISolone sod succ 125 MG VIAL IM ONE (17:20)
[2024-07-09] MEDS ORDERED: Ketorolac Tromethamine 30 MG/ML VIAL IM ONE (17:20)
[2024-07-09] MEDS ORDERED: PREDNISONE50 MG PO (19:07)
[2024-07-09] MEDS ORDERED: CYCLOBENZAPRINE5 M3 PO (19:07)
== END 2024-07-09 19:44 | disposition home or self-care (01) ==
LOC: ED 17:06
DX: M54.16 Radiculopathy, lumbar region (principal); R20.0 Anesthesia of skin; R42 Dizziness and giddiness; I10 Essential (primary) hypertension; I25.10 Atherosclerotic heart disease of native coronary artery without angina pectoris; F17.210 Nicotine dependence, cigarettes, uncomplicated; Z88.0 Allergy status to penicillin; Z79.899 Other long term (current) drug therapy

== ENCOUNTER → 2024-08-19 | Outpatient (CLI) | payer OTHER, MEDICAID ==
[~2024-08-19] MED LIST changes: +BREYNA 80-4.510.3 GM INH; +CYCLOBENZAPRINE5 M3 PO; +ESCITALOPRAM OXA5 MG PO; +GABAPENTIN600 MG PO; +HYDRALAZINE HC100 MG PO; +LASIX40 MG PO; +PREDNISONE50 MG PO; +PROTONIX TR40 M1 PO; +ROFLUMILAST500 MCG PO; +SIMVASTATIN20 MG PO
[2024-08-19 14:54] LABS: BASO % 0.2 % (0.0-1.0); EOS % 0.2 % (1.0-4.0); HEMATOCRIT 31.9 % (37.0-47.0); MEAN CELL VOLUME 83.9 fl (81.0-99.0); MEAN CORPUSCULAR HGB 23.7 pg (27.0-31.0); MEAN CORPUSCULAR HGB CONC 28.2 g/dl (33.0-37.0); MEAN PLATELET VOLUME 9.5 fl (9.6-12.3); MONO # 0.6 10*3/uL (0.1-1.0); MONO % 5.6 % (3.0-9.0); NEUT # 9.8 10*3/uL (2.3-7.9); NEUT % 87.5 % (47.0-73.0); PLATELET COUNT AUTOMATED 354 10*3/uL (130-400); RED CELL DISTRI WIDTH 21.5 % (0-14.5); WHITE BLOOD COUNT 11.2 10*3/uL (4.8-10.8)
[2024-08-19 15:22] LABS: POTASSIUM 3.9 mmol/L (3.4-5.1); TOTAL PROTEIN 7.2 gm/dL (6.0-8.0)
== END | disposition home or self-care (01) ==
LOC: LAB 14:35
PROVIDERS: ATTEND Internal Medicine Cardiovascular Disease
DX: I21.4 Non-ST elevation (NSTEMI) myocardial infarction (principal); I25.10 Atherosclerotic heart disease of native coronary artery without angina pectoris; R07.9 Chest pain, unspecified

== ENCOUNTER → 2024-11-05 | Outpatient (CLI) | payer OTHER ==
[2024-11-05 14:42] LABS: BASO % 0.1 % (0.0-1.0); EOS # 0.1 10*3/uL (0.0-0.4); EOS % 0.9 % (1.0-4.0); HEMATOCRIT 27.2 % (37.0-47.0); MEAN CELL VOLUME 82.4 fl (81.0-99.0); MEAN CORPUSCULAR HGB CONC 27.9 g/dl (33.0-37.0); MEAN PLATELET VOLUME 9.9 fl (9.6-12.3); MONO # 0.8 10*3/uL (0.1-1.0); MONO % 8.8 % (3.0-9.0); NEUT % 77.3 % (47.0-73.0); PLATELET COUNT AUTOMATED 264 10*3/uL (130-400); RED CELL DISTRI WIDTH 16.5 % (0-14.5); WHITE BLOOD COUNT 9.1 10*3/uL (4.8-10.8)
== END | disposition home or self-care (01) ==
LOC: LAB 13:42
PROVIDERS: ATTEND Internal Medicine
DX: I12.9 Hypertensive chronic kidney disease with stage 1 through stage 4 chronic kidney disease, or unspecified chronic kidney disease (principal); N18.31 Chronic kidney disease, stage 3a; R53.83 Other fatigue; E53.9 Vitamin B deficiency, unspecified; E55.9 Vitamin D deficiency, unspecified

== ENCOUNTER → 2025-05-20 | Outpatient (CLI) | payer OTHER | END | disposition home or self-care (01) | LOC: US 00:15 | PROVIDERS: ATTEND Internal Medicine Cardiovascular Disease | DX: I25.10 Atherosclerotic heart disease of native coronary artery without angina pectoris (principal); I73.9 Peripheral vascular disease, unspecified; I65.23 Occlusion and stenosis of bilateral carotid arteries ==

== ENCOUNTER → 2025-07-03 | Outpatient (CLI) | payer OTHER ==
[~2025-07-03] MED LIST changes: +ASPIRIN ADULT L81 M1 PO; +CARVEDILOL6.25 MG PO; +IOHEXOL 350 MG/ML 100 ML VIAL IV ONE; +LEXAPRO20 MG PO; +PREDNISONE20 M1 PO; +SODIUM CHLORIDE 0.9% 100 ML BAG IV ONE; +SODIUM CHLORIDE 0.9% 100 ML IV ONE; +TRELEGY ELLIPT1 EAC1 INH; +Vibra-Tab100 MG PO
== END | disposition home or self-care (01) ==
LOC: CT 00:09 → LAB 00:09 → CT 14:00
PROVIDERS: ATTEND Internal Medicine Cardiovascular Disease
DX: J43.2 Centrilobular emphysema (principal); I73.9 Peripheral vascular disease, unspecified; I77.9 Disorder of arteries and arterioles, unspecified

== ENCOUNTER → 2025-07-06 | Outpatient (CLI) | payer OTHER | END | disposition home or self-care (01) | LOC: CT 10:45 | PROVIDERS: ATTEND Internal Medicine Cardiovascular Disease | DX: I65.23 Occlusion and stenosis of bilateral carotid arteries (principal); I65.02 Occlusion and stenosis of left vertebral artery; I73.9 Peripheral vascular disease, unspecified ==